=== PATIENT | male | born 1960 | race Caucasian/White ===

== ENCOUNTER 2018-12-08 09:36 | Day surgery (SDC) | payer MEDICARE, MEDICAID ==
[~2018-12-08] VITALS: Ht 157.5 cm; Wt 58.7 kg
[~2018-12-08 09:36] MED LIST: FLUO10CA8 PO; FLUT50SP21 NARES; LIDOCAINE 2% INJ 100 MG/5 ML SDV (FOR ANES.) As Ordered ONE; MULTCAP PO; NS 1,000 ML IV ONE; OMEP-221 PO; PROPOFOL 200 MG/20 ML VIAL As Ordered ONE; RIZA5TAB PO; VENTAER INH; ZOFR4TAB16 PO
--- NOTE | 2018-12-08 11:11 | ROOR ---
Patient Name: Jose Holly Procedure Date: 12/08/2018 10:54 AM Date of : 1960 Age: 58 Room: [facility] Gender: Male Note Status: Finalized Procedure: Upper Endoscopy + Biopsies Indications: Heartburn, Exclusion of Munoz's esophagus, Nausea with vomiting Providers: Fortino Hernandez MD Referring MD: LUIGI KAN MD Requesting Provider: Medicines: Monitored Anesthesia Care Complications: No immediate complications. Procedure: Pre-Anesthesia Assessment: - The heart rate, respiratory rate, oxygen saturations, blood pressure, adequacy of pulmonary ventilation, and response to care were monitored throughout the procedure. The Endoscope was introduced through the mouth, and advanced to the second part of duodenum. The upper GI endoscopy was accomplished without difficulty. The patient tolerated the procedure well. Findings: The Z-line was irregular and was found 40 cm from the incisors. Multiple biopsies were obtained with cold forceps for evaluation to rule out Munoz's Esophagus randomly at the gastroesophageal junction. A small hiatal hernia was present. No other significant abnormalities were identified in a careful examination of the stomach. Biopsies were taken with a cold forceps in the gastric antrum for Helicobacter pylori testing. The exam was otherwise without abnormality. Impression: - Z-line irregular, 40 cm from the incisors. - Small hiatal hernia. - The examination was otherwise normal. - Multiple biopsies were obtained at the gastroesophageal junction. - Biopsies were taken with a cold forceps for Helicobacter pylori testing. - The examination was otherwise normal. Recommendation: - Patient has a contact number available for emergencies. The signs and symptoms of potential delayed complications were discussed with the patient. Return to normal activities tomorrow. Written discharge instructions were provided to the patient. - Resume previous diet. - Discharge patient to home. - Continue present medications. - Await pathology results. - Telephone GI clinic for pathology results in 1 week. - Return to referring physician. - The findings and recommendations were discussed with the patient's family. Fortino Hernandez MD Fortino Hernandez MD 12/08/2018 11:10:50 AM Electronically signed by Fortino Hernandez MD Number of Addenda: 0 Note Initiated On: 12/08/2018 10:54 AM Estimated Blood Loss: Estimated blood loss: none.
[2018-12-08] MEDS ORDERED: ePHEDrine SULFATE 25 MG/5 ML(5MG/ML) SYRINGE As Ordered ONE (11:23)
--- NOTE | 2018-12-08 11:28 | ROOR ---
Patient Name: Jose Holly Procedure Date: 12/08/2018 10:56 AM Date of : 1960 Age: 58 Room: [facility] Gender: Male Note Status: Finalized Procedure: Total Colonoscopy to Cecum + Biopsy Polypectomy Indications: Screening for colorectal malignant neoplasm Providers: Fortino Hernandez MD Referring MD: LUIGI KAN MD Requesting Provider: Medicines: Monitored Anesthesia Care Complications: No immediate complications. Procedure: Pre-Anesthesia Assessment: - The heart rate, respiratory rate, oxygen saturations, blood pressure, adequacy of pulmonary ventilation, and response to care were monitored throughout the procedure. The Colonoscope was introduced through the anus and advanced to the cecum, identified by appendiceal orifice and ileocecal valve. The colonoscopy was performed without difficulty. The patient tolerated the procedure well. The quality of the bowel preparation was excellent. Findings: The perianal and digital rectal examinations were normal. Non-bleeding internal hemorrhoids were found during retroflexion. The hemorrhoids were small and Grade I (internal hemorrhoids that do not prolapse). A small polyp was found at 10 cm proximal to the anus. The polyp was sessile. The polyp was removed with a jumbo cold forceps. Resection and retrieval were complete. A small polyp was found in the cecum. The polyp was sessile. The polyp was removed with a jumbo cold forceps. Resection and retrieval were complete. The exam was otherwise without abnormality on direct and retroflexion views. Impression: - Non-bleeding internal hemorrhoids. - One small polyp at 10 cm proximal to the anus, removed with a jumbo cold forceps. Resected and retrieved. - One small polyp in the cecum, removed with a jumbo cold forceps. Resected and retrieved. - The examination was otherwise normal on direct and retroflexion views. - The exam was otherwise normal to the cecum. Recommendation: - Patient has a contact number available for emergencies. The signs and symptoms of potential delayed complications were discussed with the patient. Return to normal activities tomorrow. Written discharge instructions were provided to the patient. - High fiber diet. - Discharge patient to home. - Continue present medications. - Await pathology results. - Telephone GI clinic for pathology results in 1 week. - Repeat colonoscopy for surveillance based on pathology results. - Return to referring physician. - The findings and recommendations were discussed with the patient's family. Fortino Hernandez MD Fortino Hernandez MD 12/08/2018 11:27:34 AM Electronically signed by Fortino Hernandez MD Number of Addenda: 0 Note Initiated On: 12/08/2018 10:56 AM Estimated Blood Loss: Estimated blood loss: none.
[2018-12-08 11:45] VITALS: BP 117/80
== END 2018-12-08 12:06 | disposition home or self-care (01) ==
LOC: M OPP 09:36
PROVIDERS: ATTEND Internal Medicine Gastroenterology
DX: Z12.11 Encounter for screening for malignant neoplasm of colon (principal); K64.0 First degree hemorrhoids; D12.6 Benign neoplasm of colon, unspecified; D12.0 Benign neoplasm of cecum; K22.8 Other specified diseases of esophagus; K44.9 Diaphragmatic hernia without obstruction or gangrene; R12 Heartburn; R11.2 Nausea with vomiting, unspecified

== ENCOUNTER → 2019-09-19 | Outpatient (CLI) | payer MEDICARE, MEDICAID ==
[~2019-09-19] MED LIST changes: +FLUO10CA15 PO; -FLUO10CA8 PO; +FLUT15.820 NARES; -FLUT50SP21 NARES; -LIDOCAINE 2% INJ 100 MG/5 ML SDV (FOR ANES.) As Ordered ONE; -NS 1,000 ML IV ONE; +PROHANCE 279.3MG/ML 15ML VIAL As Ordered ONE; -PROPOFOL 200 MG/20 ML VIAL As Ordered ONE
--- NOTE | 2019-09-19 19:55 | REPVR ---
PROCEDURE INFORMATION: Exam: MR Head Without and With Contrast Exam date and time: 09/19/2019 4:18 PM Age: 59 years old Clinical indication: Patient HX: Vertigo lasting 3-4 months TECHNIQUE: Imaging protocol: MR of the head without and with intravenous contrast. Contrast material: PROHANCE; Contrast volume: 12 ml; Contrast route: 22G; COMPARISON: No relevant prior studies available. FINDINGS: Brain: Scattered foci T2 lengthening in the subcortical , periventricular, and centrum semiovale white matter. Ventricles: Normal. No ventriculomegaly. Bones/joints: Unremarkable. Sinuses: Normal as visualized. No acute sinusitis. Mastoid air cells: Normal as visualized. No mastoid effusion. Orbits: Unremarkable. Soft tissues: Unremarkable. Other findings: No abnormal enhancement. IMPRESSION: 1. Scattered foci T2 lengthening in the subcortical , periventricular, and centrum semiovale white matter. 2. Otherwise unremarkable. No acute findings. Electronically signed by: Philipp Rojas On 09/19/2019 19:54:55 PM
--- NOTE | 2019-09-19 19:59 | REPVR ---
PROCEDURE INFORMATION: Exam: MR Cervical Spine Without and With Contrast Exam date and time: 09/19/2019 4:18 PM Age: 59 years old Clinical indication: Other: Vertigo TECHNIQUE: Imaging protocol: Multiplanar magnetic resonance images of the cervical spine without and with intravenous contrast. Contrast material: PROHANCE; Contrast volume: 12 ml; Contrast route: 22G; COMPARISON: No relevant prior studies available. FINDINGS: Vertebrae: Unremarkable. Spinal cord: Broad posterior disc protrusion at C5-C6 results in moderate flattening of the spinal cord with increased signal in the spinal cord consistent with myelomalacia. No abnormal enhancement within the spinal cord. Discs/Spinal canal/Neural foramina: Mild degenerative spondylosis. Severe bilateral foraminal stenosis at C2, C3, C4, C5 with moderate to severe bilateral foraminal narrowing at C6 and mild bilateral foraminal narrowing at C7 secondary to uncinate joint hypertrophic changes. Broad posterior disc protrusion at C4-C5 effaces the ventral subarachnoid space with moderate cord flattening. Increased signal demonstrated within the central portion of the spinal cord suggestive of myelomalacia. Small central disc protrusion at C6-C7 effaces the ventral subarachnoid space with minimal mid cord impingement. Vasculature: Expected flow voids in the vertebral arteries. Soft tissues: Unremarkable IMPRESSION: 1. Multilevel bilateral foraminal stenosis secondary to uncinate joint hypertrophic changes most severe from C2-C5. 2. Broad posterior disc protrusion at C4-C5 and C6-C7 effaces the ventral subarachnoid space with moderate cord flattening. Increased signal demonstrated within the central portion of the spinal cord suggestive of myelomalacia. No abnormal enhancement. Clinical correlation to exclude demyelinating disease suggested as well. Electronically signed by: Philipp Rojas On 09/19/2019 19:59:42 PM
== END ==
LOC: M RAD 14:38
PROVIDERS: ATTEND Orthopaedic Surgery
DX: R42 Dizziness and giddiness (principal); M50.222 Other cervical disc displacement at C5-C6 level; M50.223 Other cervical disc displacement at C6-C7 level; M48.02 Spinal stenosis, cervical region; R90.82 White matter disease, unspecified
CPT/HCPCS: 70553; 72156; A9576

== ENCOUNTER → 2020-12-21 | Outpatient (CLI) | payer MEDICARE, MEDICAID ==
[~2020-12-21] MED LIST changes: -FLUO10CA15 PO; +FLUO10CA16 PO; -RIZA5TAB PO; +RIZA5TAB2 PO
--- NOTE | 2020-12-21 19:07 | REPVR ---
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 Contrast material: PROHANCE; Contrast volume: 11 ml; Contrast route: INTRAVENOUS (IV); COMPARISON: MRI-Brain W/O FOLL BY WITH 09/19/2019 3:39 PM FINDINGS: Brain: There is no acute infarct. No acute intracranial hemorrhage is seen. There are mild non-specific foci of T2 and FLAIR hyperintensity in the periventricular and subcortical white matter, which are likely the sequela of chronic small vessel ischemic injury and are similar in appearance compared to the prior MRI brain on 09/19/2019. No mass effect, midline shift, or herniation is noted. Cerebral ventricles: Normal for age. No hydrocephalus. Bones/joints: There is a 6 mm T2 hyperintense circumscribed enhancing lesion in the right parietal bone, which is unchanged compared to the prior MRI on 09/19/2019, and may represent an intraosseous hemangioma. Paranasal sinuses: There is mild mucosal thickening in the maxillary sinuses and ethmoid sinuses. No air-fluid levels are seen in the sinuses. Mastoid air cells: The mastoid air cells are well aerated. Orbital cavity: The globes and orbits are intact and normal in appearance. Soft tissues: Unremarkable. IMPRESSION: 1. No acute intracranial abnormality. 2. Mild non-specific foci of T2 and FLAIR hyperintensity in the periventricular and subcortical white matter, which are likely the sequela of chronic small vessel ischemic injury and are similar in appearance compared to the prior MRI brain on 09/19/2019. Electronically signed by: Ru Roach On 12/21/2020 19:07:34 PM
--- NOTE | 2020-12-21 19:12 | REPVR ---
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 Exam focused on the arteries. COMPARISON: 1. MRI-Brain W/O FOLL BY WITH 2019-09-19 15:39 2. MRI-C SPINE W/O FOLL BY WITH 2019-09-19 15:15 FINDINGS: ANTERIOR CIRCULATION: Right internal carotid artery: Intracranial segment is patent with no significant stenosis. No aneurysm. Right middle cerebral artery: No occlusion or significant stenosis. No aneurysm. Right anterior cerebral artery: No occlusion or significant stenosis. No aneurysm. 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 Left middle cerebral artery: No occlusion or significant stenosis. No aneurysm. Left anterior cerebral artery: No occlusion or significant stenosis. No aneurysm. POSTERIOR CIRCULATION: Right vertebral artery: No occlusion or significant stenosis. No aneurysm. Left vertebral artery: No occlusion or significant stenosis. No aneurysm. Basilar artery: No occlusion or significant stenosis. No aneurysm. Right posterior cerebral artery: No occlusion or significant stenosis. No aneurysm. Left posterior cerebral artery: left posterior cerebral artery widely patent. Other vasculature: Persistent left trigeminal artery.. Brain: Diffuse intracranial dilatation, associated with chronic hypertension. IMPRESSION: 1. No acute vessel occlusion or high-grade stenosis. 2. Persistent left trigeminal artery.. 3. 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 4. Diffuse intracranial dilatation, associated with chronic hypertension. Electronically signed by: Fitz Rowe On 12/21/2020 19:11:49 PM
== END ==
LOC: M RAD 16:52
PROVIDERS: ATTEND Physician Assistant
DX: D49.6 Neoplasm of unspecified behavior of brain (principal)
CPT/HCPCS: 70544; 70553; A9576